=== PATIENT | male | born 1930 | race Caucasian/White ===

== ENCOUNTER 2016-08-23 17:45 | Emergency (ER) | payer OTHER ==
[~2016-08-23 17:45] MED LIST: ASPIRIN CHILDRE81 MG PO; CALCIUM ACETATE PO; COREG3.125 MG PO; DICLOFENAC SODI50 MG PO; FISH OIL306 MG PO; HYDROCODONE BITA PO; LANOXIN EQUIVALENT PO; LOVASTATIN10 M1 PO; PRILOSEC10 MG PO; VIT B 6 PO; VITAMIN D-31000 UNIT PO
--- NOTE | 2016-08-23 21:18 | ED CLINICAL REPORT ---
Clinical Report - Physicians/Mid Levels [facility] [address] [place] [address] 08/23/2016 17:46 [id number] Time Seen: 18:20; initial patient contact, initial documentation, patient care assumed. Arrived- By private vehicle. Historian- patient and son. HISTORY OF PRESENT ILLNESS Location of injuries- face, chest and right shoulder. Chief Complaint: FALL. The injury occurred today. Occurred at a amish. Fell down 2 stairs and landed on a concrete surface; tripped. The patient complains of mild pain. The patient sustained a blow to the head. No neck pain, loss of consciousness or seizure. Not dazed. REVIEW OF SYSTEMS No numbness, chest pain, difficulty breathing, weakness or abdominal pain. No laceration. He has no pain on weight bearing. All systems otherwise negative, except as recorded above. PAST HISTORY See nurses notes. PROBLEMS: Epistaxis. Numerous nosebleeds. Abdominal Pain. Diarrhea. Chest Pain. Coronary Artery Disease. Hypercholesterolemia. Prostate Cancer. Myocardial Infarction. --18:04 Rolando Palacios R.N. ADDITIONAL SURGERIES: Colonoscopy. Coronary Angioplasty. Prostatectomy. --18:04 Rolando Palacios R.N. SOCIAL HISTORY Former smoker. No alcohol use or drug use. No recent travel. Is a local resident. FAMILY HISTORY No significant family medical history. ADDITIONAL NOTES The nursing notes have been reviewed with agreement regarding the chief complaint, HPI, ROS, PMH and patient medications and allergies. PHYSICAL EXAM Vital Signs: 08/23/2016 17:59 BP: 127/66. HR: 62. RR: 16. O2 saturation: 98%. Temp: 98 F. Pain level now: 4/10. Have been reviewed as normal and appear to be correct. Appearance: Alert. Oriented X3. No acute distress. Head: Head tender. Swelling of head present. Eyes: Pupils equal, round and reactive to light. EOM intact. Right periorbital area: mild tenderness and swelling and small abrasion and ecchymosis of the lateral aspect and supraorbital area of the periorbital area. No erythema, puncture wound or foreign body. No laceration or deformity. No entrapment of extraocular muscles or gaze palsy. ENT: No dental injury. Pharynx normal. Neck: Painless ROM. Non-tender. CVS: Heart sounds normal. Pulses normal. Respiratory: Breath sounds normal. Chest nontender. Abdomen: No visible injury. Soft and nontender. Back: No tenderness. ROM normal. Skin: Skin intact. Skin warm and dry. Normal skin color. Normal skin turgor. Extremities: Normal inspection. Pelvis stable. Extremities atraumatic. No lower extremity edema. Neuro: Oriented X 3. No motor deficit. No sensory deficit. LABS, X-RAYS, AND EKG X-Rays: X-rays are normal and reveal no acute disease (and reviewed by dr jane). Right shoulder negative. Rib series negative. The X-rays were independently viewed by me. Sternum / Ribs X-rays: (IMPRESSION: 1. Minor left basilar plate-like atelectasis. 2. No evidence of a fracture Electronically Final signed by:Bayron Tracy MD 08/23/2016 9:42:41 PM). The X-rays were interpreted by the radiologist and contemporaneously by me. Rt Shoulder X-ray: (IMPRESSION: 1. Chronic rotator cuff tear 2. 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 Electronically Final signed by:Bayron Tracy MD 08/23/2016 9:44:00 PM). The X-rays were interpreted by the radiologist and contemporaneously by me. PROGRESS AND PROCEDURES Patient and relative counseled in person regarding the patient's stable condition, test results and diagnosis. 2112. Differential Diagnosis: Other possible considerations: fall, fx, head injury, contusions, abrasions, lacs, sprains. Above considerations are based on history, physical exam and X-Ray data. Differential diagnosis was discussed with patient and patient's family. Disposition: Discharged home in good and unchanged condition (21:18). Condition: good and stable. CLINICAL IMPRESSION Muscle strain of the anterior chest wall and right rotator cuff at the shoulder. Fall on same level by tripping. Single contusion with abrasion to the right periorbital area.No hematoma. INSTRUCTIONS Apply ice for 20 minutes four times a day for two days until better. Don't apply ice directly to skin. Protect wound and keep wound area clean. Soak in warm soapy water twice daily. Apply bacitracin twice daily. Warnings: HEAD INJURY PRECAUTIONS: An observer must check on the patient frequently for the next 24 hours to confirm that the patient responds as expected, is not confused, has no new weakness or numbness, and has no other problems. GENERAL WARNINGS: Return or contact your physician immediately if your condition worsens or changes unexpectedly, if not improving as expected, or if other problems arise. SPECIFICALLY, return if you develop incontinence of feces (loss of bowel control) or urine (loss of bladder control). trouble breathing, chestp pain, abdominal pain. Prescription Medications: Naproxen 500 mg tablets: take 1 orally every 12 hours as needed for pain. Dispense twenty (20). No refills. Follow-up: Follow up with your doctor in about five days even if well. Summary of care provided to patient. Understanding of the discharge instructions verbalized by patient. (Electronically signed by Kenyetta Woo A.R.N.P. 08/23/2016 21:44)
--- NOTE | 2016-08-23 21:19 | ED NURSING NOTES ---
Clinical Report - Nurses [facility] [address] [place] [address] 08/23/2016 17:46 [id number] TRI[facility] Triage time 17:59. Acuity: LEVEL 3. Chief Complaint: FALL (Fell down 2 concrete steps today, hit his right ribs and head. Pt states he stumbled and fell. Now c/o right rib and right shoulder pain. abrasions near his right eye.). 18:02 08/23/16. SEPSIS SCREEN: Sepsis Screen. Negative (no infection suspected/documented). JARRETT COMA SCORE: Jarrett Coma Scale: 15- eyes open spontaneously (4); best verbal response- oriented x 4 (5); best motor response- obeys commands (6). --18:13 Rolando Palacios R.N. 17:59 08/23/16. BP: 127/66. HR: 62. RR: 16. O2 saturation: 98% on room air. Temp: 98 F (oral). Pain level now: 10/27. --18:13 Rolando Palacios R.N. Weight: 81.6 kg estimated. Height/Length: 67 inches Estimated. BMI: 28.2. --18:04 Rolando Palacios R.N. Medications Aspirin Oral. Calcium Acetate-Magnesium Carb Oral. Diclofenac Oral. Fish Oil Oral. Lovastatin Oral (Tablet 20 mg) 1 tablet, daily. Omeprazole Oral. Vitamin B-6 Oral. Vitamin D Oral. --18:03 Rolando Palacios R.N. Water pill - started approx 2 weeks ago (Dr Hay). --18:04 Rolando Palacios R.N. Allergies No Known Drug Allergy. --18:03 Rolando Palacios R.N. History Arrived by private vehicle. Historian: family. This occurred today. ( He was initially evaluated by EMS, but declined transport.). No loss of consciousness. Treatment EDUCATIONAL INSTITUTION PRESIDENT: None. Trauma activation: Pre-hospital notification of patient arrival was not received. PAST MEDICAL HX: ( [email or web address]). SOCIAL HX: Former smoker, end date 1976. No alcohol use or drug use. ABUSE ASSESSMENT: No report of abuse. --18:13 Rolando Palacios R.N. PROBLEMS: Epistaxis. Numerous nosebleeds. Abdominal Pain. Diarrhea. Chest Pain. Coronary Artery Disease. Hypercholesterolemia. Prostate Cancer. Myocardial Infarction. --18:04 Rolando Palacios R.N. ADDITIONAL SURGERIES: Colonoscopy. Coronary Angioplasty. Prostatectomy. --18:04 Rolando Palacios R.N. Interventions ID band on patient. To treatment room. --18:13 Rolando Palacios R.N. PHYSICAL ASSESSMENT 18:18 08/23/16. Ambulatory to room. GENERAL / NEURO / PSYCH: Alert. Appears in pain. The patient is disoriented to time. HEENT: Pupils equal, round and reactive to light. Head non-tender. RESPIRATORY: Respirations not labored. Chest nontender. Breath sounds within normal limits. CVS: Pulses within normal limits. Capillary refill less than 2 seconds. GI / : Abdomen soft and nontender. EXTREMITIES: Limited ROM present in the right shoulder. Neuro-vascular status intact to the extremity. SKIN: Skin is warm and dry. ( abrasions over right clavicle, around right eye, posterior right shoulder, bruise at anterior axilla.). --18:18 Rolando Palacios R.N. NURSING PROGRESS NOTES 18:18 08/23/16. Patient gowned. Reassurance given. Two patient identifiers checked. Call light placed in reach. Bed placed in lowest position. Brakes of bed on. Patient ready for evaluation- chart flagged. --18:18 Rolando Palacios R.N. 19:16 08/23/16. Care transferred and report given (Honorio Ramirez, RN). --19:16 Rolando Palacios R.N. 20:15 08/23/16. BP: 122/72. HR: 72 (regular). RR: 16. O2 saturation: 98% on room air. Pain level now: 08/29. --20:19 Honorio Campbell R.N. 21:10. ( Bacitracin ointment applied to abrasions on his forehead). --07:31 Honorio Campbell R.N. DISPOSITION / DISCHARGE 21:15. Condition at departure: improved. No learning barriers present. Discharge instructions provided and reviewed with the patient. Reviewed medication(s) (prescription given to pt). Reviewed wound care instructions. Reviewed referral to family practice for followup. Patient and family verbalized understanding. Written instructions provided in Salvadorean. The patient was discharged by the physician. He was discharged home and accompanied by family. He left the Emergency Department ambulatory and via private vehicle. Family member driving. --07:24 Honorio Campbell R.N. Departure time: 2114Aug 23 2016. --07:25 Honorio Campbell R.N. 21:15 08/23/16. BP: 132/68. HR: 84 (regular and normal rate). RR: 16. O2 saturation: 98% on room air. Temp: 98.6 F (oral). Pain level now: 08/29. --07:27 Honorio Campbell R.N. Locked/Released at 08/24/2016 7:31 by Honorio Campbell R.N.
--- NOTE | 2016-08-23 21:19 | ED NURSING NOTES ---
Clinical Report - Nurses [facility] [address] [place] [address] 08/23/2016 17:46 [id number] TRI[facility] Triage time 17:59. Acuity: LEVEL 3. Chief Complaint: FALL (Fell down 2 concrete steps today, hit his right ribs and head. Pt states he stumbled and fell. Now c/o right rib and right shoulder pain. abrasions near his right eye.). 18:02 08/23/16. SEPSIS SCREEN: Sepsis Screen. Negative (no infection suspected/documented). JARRETT COMA SCORE: Jarrett Coma Scale: 15- eyes open spontaneously (4); best verbal response- oriented x 4 (5); best motor response- obeys commands (6). --18:13 Rolando Palacios R.N. 17:59 08/23/16. BP: 127/66. HR: 62. RR: 16. O2 saturation: 98% on room air. Temp: 98 F (oral). Pain level now: 10/27. --18:13 Rolando Palacios R.N. Weight: 81.6 kg estimated. Height/Length: 67 inches Estimated. BMI: 28.2. --18:04 Rolando Palacios R.N. Medications Aspirin Oral. Calcium Acetate-Magnesium Carb Oral. Diclofenac Oral. Fish Oil Oral. Lovastatin Oral (Tablet 20 mg) 1 tablet, daily. Omeprazole Oral. Vitamin B-6 Oral. Vitamin D Oral. --18:03 Rolando Palacios R.N. Water pill - started approx 2 weeks ago (Dr Hay). --18:04 Rolando Palacios R.N. Allergies No Known Drug Allergy. --18:03 Rolando Palacios R.N. History Arrived by private vehicle. Historian: family. This occurred today. ( He was initially evaluated by EMS, but declined transport.). No loss of consciousness. Treatment JEWELRY MANAGER: None. Trauma activation: Pre-hospital notification of patient arrival was not received. PAST MEDICAL HX: ( [email or web address]). SOCIAL HX: Former smoker, end date 1976. No alcohol use or drug use. ABUSE ASSESSMENT: No report of abuse. --18:13 Rolando Palacios R.N. PROBLEMS: Epistaxis. Numerous nosebleeds. Abdominal Pain. Diarrhea. Chest Pain. Coronary Artery Disease. Hypercholesterolemia. Prostate Cancer. Myocardial Infarction. --18:04 Rolando Palacios R.N. ADDITIONAL SURGERIES: Colonoscopy. Coronary Angioplasty. Prostatectomy. --18:04 Rolando Palacios R.N. Interventions ID band on patient. To treatment room. --18:13 Rolando Palacios R.N. PHYSICAL ASSESSMENT 18:18 08/23/16. Ambulatory to room. GENERAL / NEURO / PSYCH: Alert. Appears in pain. The patient is disoriented to time. HEENT: Pupils equal, round and reactive to light. Head non-tender. RESPIRATORY: Respirations not labored. Chest nontender. Breath sounds within normal limits. CVS: Pulses within normal limits. Capillary refill less than 2 seconds. GI / : Abdomen soft and nontender. EXTREMITIES: Limited ROM present in the right shoulder. Neuro-vascular status intact to the extremity. SKIN: Skin is warm and dry. ( abrasions over right clavicle, around right eye, posterior right shoulder, bruise at anterior axilla.). --18:18 Rolando Palacios R.N. NURSING PROGRESS NOTES 18:18 08/23/16. Patient gowned. Reassurance given. Two patient identifiers checked. Call light placed in reach. Bed placed in lowest position. Brakes of bed on. Patient ready for evaluation- chart flagged. --18:18 Rolando Palacios R.N. 19:16 08/23/16. Care transferred and report given (Honorio Ramirez, RN). --19:16 Rolando Palacios R.N. 20:15 08/23/16. BP: 122/72. HR: 72 (regular). RR: 16. O2 saturation: 98% on room air. Pain level now: 08/29. --20:19 Honorio Campbell R.N. 21:10. ( Bacitracin ointment applied to abrasions on his forehead). --07:31 Honorio Campbell R.N. DISPOSITION / DISCHARGE 21:15. Condition at departure: improved. No learning barriers present. Discharge instructions provided and reviewed with the patient. Reviewed medication(s) (prescription given to pt). Reviewed wound care instructions. Reviewed referral to family practice for followup. Patient and family verbalized understanding. Written instructions provided in Mauritian. The patient was discharged by the physician. He was discharged home and accompanied by family. He left the Emergency Department ambulatory and via private vehicle. Family member driving. --07:24 Honorio Campbell R.N. Departure time: 2114Aug 23 2016. --07:25 Honorio Campbell R.N. 21:15 08/23/16. BP: 132/68. HR: 84 (regular and normal rate). RR: 16. O2 saturation: 98% on room air. Temp: 98.6 F (oral). Pain level now: 08/29. --07:27 Honorio Campbell R.N. Locked/Released at 08/24/2016 7:31 by Honorio Campbell R.N.
--- NOTE | 2016-08-23 21:19 | ED ORDER SUMMARY ---
..... Patient: YAYA RODRÍGUEZ OrderSheet VisitID: [id number] [place] [address] 86y, M Registration Date/Time: 08/23/2016 ORDER SHEET Weight: 81.6 kg (estimated) Allergies: No Known Drug Allergy GENERAL ORDERS: Shoulder 2V or more Right Urgent (18:27 08/23/2016 HBivens A.R.N.P.) (Ack 18:31 TBergley) (19:05 RFay) Ribs Unilat w PA Chest Right Urgent (18:28 08/23/2016 HBivens A.R.N.P.) (Ack 18:31 TBergley) (19:05 RFay) MEDICATION ORDERS: IV FLUIDS: ORDER SHEET NOTES: [Electronically signed by Kenyetta WooR.N.PVerónica (21:44 08/23/2016)] [Electronically signed by Honorio Campbell R.N. (07:31 08/24/2016)] [Electronically locked/signed by Honorio Campbell R.N. (07:08/24/2016)]
--- NOTE | 2016-08-23 21:19 | ED ORDER SUMMARY ---
..... Patient: YAYA RODRÍGUEZ OrderSheet [facility] VisitID: [id number] [place] [address] 86y, M Registration Date/Time: 08/23/2016 ORDER SHEET Weight: 81.6 kg (estimated) Allergies: No Known Drug Allergy GENERAL ORDERS: Shoulder 2V or more Right Urgent (18:27 08/23/2016 HBivens A.R.N.P.) (Ack 18:31 TBergley) (19:05 RFay) Ribs Unilat w PA Chest Right Urgent (18:28 08/23/2016 HBivens A.R.N.P.) (Ack 18:31 TBergley) (19:05 RFay) MEDICATION ORDERS: IV FLUIDS: ORDER SHEET NOTES: [Electronically signed by Kenyetta WooR.N.PVerónica (21:44 08/23/2016)] [Electronically signed by Honorio Campbell R.N. (07:31 08/24/2016)] [Electronically locked/signed by Honorio Campbell R.N. (07:08/24/2016)]
--- NOTE | 2016-08-23 21:42 | DIAGNOSTIC IMAGING REPORT ---
PROCEDURE: XR RIBS UNILAT W/PA CHEST-RT INDICATION: TRAUMA/INJURY TECHNIQUE: Two views of the right ribs with single PA view chest. COMPARISON: None. FINDINGS: RIGHT RIBS: No fracture or suspicious osseous lesion pill CHEST: Minor left basilar plate-like atelectasis Heart size and part vessels are normal. Tortuous aorta. Right shoulder chronic rotator cuff tear . IMPRESSION: 1. Minor left basilar plate-like atelectasis. 2. No evidence of a fracture
--- NOTE | 2016-08-23 21:44 | DIAGNOSTIC IMAGING REPORT ---
PROCEDURE: XR SHOULDER 2 OR MORE VW-RIGHT INDICATION: TRAUMA/INJURY TECHNIQUE: Three views. COMPARISON: None. FINDINGS: Chronic rotator cuff tear. 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 No fracture or dislocation. Soft tissues are unremarkable. IMPRESSION: 1. Chronic rotator cuff tear 2. 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
--- NOTE | 2016-08-24 07:31 | ED DISCHARGE INSTRUCTIONS ---
Patient: YAYA RODRÍGUEZ General Instructions [facility] VisitID: [id number] [place] [address] 86y, M Registration Date/Time: 08/23/2016 Muscle strain of the anterior chest wall and right rotator cuff at the shoulder. Fall on same level by tripping. Single contusion with abrasion to the right periorbital area.No hematoma. INSTRUCTIONS Apply ice for 20 minutes four times a day for two days until better. Don't apply ice directly to skin. Protect wound and keep wound area clean. Soak in warm soapy water twice daily. Apply bacitracin twice daily. Warnings: HEAD INJURY PRECAUTIONS: An observer must check on the patient frequently for the next 24 hours to confirm that the patient responds as expected, is not confused, has no new weakness or numbness, and has no other problems. GENERAL WARNINGS: Return or contact your physician immediately if your condition worsens or changes unexpectedly, if not improving as expected, or if other problems arise. SPECIFICALLY, return if you develop incontinence of feces (loss of bowel control) or urine (loss of bladder control). trouble breathing, chestp pain, abdominal pain. Prescription Medications: Naproxen 500 mg tablets: take 1 orally every 12 hours as needed for pain. Dispense twenty (20). No refills. Follow-up: Follow up with your doctor in about five days even if well. Summary of care provided to patient. Understanding of the discharge instructions verbalized by patient. ADDITIONAL INFORMATION Mechanical Fall You have had a fall today. It appears that the cause is mechanical. That means that you slipped, tripped or lost your balance. If your fall had been due to fainting or a seizure, further tests would be required. Home Care: Rest today and resume your normal activities when you are feeling back to normal. If you were injured during the fall, follow the advice from your doctor regarding care of your injury. You may use acetaminophen (Tylenol) or ibuprofen (Motrin, Advil) to control pain, unless another pain medicine was prescribed. [NOTE: If you have chronic liver or kidney disease or ever had a stomach ulcer or GI bleeding, talk with your doctor before using these medicines.] Fall Prevention: Was there anything that caused your fall that can be fixed, removed, or replaced? Make your home safe by keeping walkways clear of objects you may trip over. Use non-slip pads under rugs. Do not walk in poorly lit areas. Do not stand on chairs or wobbly ladders. Use caution when reaching overhead or looking upward. This position can cause a loss of balance. Be sure your shoes fit properly, have non-slip bottoms and are in good condition. Be cautious when going up and down curbs, and walking on uneven sidewalks. If your balance is poor, consider using a cane or walker. Stay as active as you can. Balance, flexibility, strength, and endurance all come from exercise. They all play a role in preventing falls. Follow Up with your doctor or as advised by our staff. Get Prompt Medical Attention if any of the following occur: Repeated mechanical falls, or unexplained falls Dizziness, fainting or seizure Severe headache Chest pain or shortness of breath Palpitations (very rapid or very slow or irregular heartbeat) Blood in vomit, stools (black or red color) Weakness of an arm or leg or one side of the face Difficulty with speech or vision Muscle Strain,Extremity A MUSCLE STRAIN is a stretching and tearing of muscle fibers. This causes pain, especially with motion of that muscle. There may also be some swelling and bruising. Home Care: 1) Keep the injured area raised to reduce pain and swelling. This is especially important during the first 48 hours. 2) Make an ice pack (ice cubes in a plastic bag, wrapped in a towel) and apply for 20 minutes every 1-2 hours the first day. You should continue with ice packs 3-4 times a day for the second and third days. Unless otherwise instructed, on the fourth day you may begin hot soaks or hot packs (small towel soaked in hot water) 3-4 times a day while you gently exercise the involved area. 3) You may use acetaminophen (Tylenol) or ibuprofen (Motrin, Advil) to control pain, unless another medicine was prescribed. [ NOTE : If you have chronic liver or kidney disease or ever had a stomach ulcer or GI bleeding, talk with your doctor before using these medicines.] 4) For LEG STRAINS: If CRUTCHES have been recommended, do not bear full weight on the injured leg until you can do so without pain. You may return to sports when you are able to hop and run on the injured leg without pain. Follow Up with your doctor or this facility if you are not improving within the next five days. Get Prompt Medical Attention if any of the following occur: -- Fingers or toes become swollen, cold, blue, numb or tingly -- Pain or swelling increases Chest Strain A strain of the chest is due to stretching and tearing of the muscle fibers between the ribs. This may occur as a result of severe coughing, strenuous lifting or twisting injuries of the upper back. This usually causes increased pain with movement or deep breathing. This may take a few days to a few weeks to heal. Home Care: Rest. Avoid heavy lifting or strenuous exertion. Avoid any activity that causes pain. If you have a severe cough, use a cough syrup such as Robitussin DM (containing dextromethorphan) unless another cough medicine was prescribed. You may use acetaminophen (Tylenol) or ibuprofen (Motrin, Advil) to control pain, unless another medicine was prescribed. [ NOTE: If you have chronic liver or kidney disease or ever had a stomach ulcer or GI bleeding, talk with your doctor before using these medicines.] Follow Up with your doctor as directed. Get Prompt Medical Attention if any of the following occur: A change in the type of pain: if it feels different, becomes more severe, lasts longer, or begins to spread into your shoulder, arm, neck, jaw or back Shortness of breath or increased pain with breathing Cough with dark colored sputum (phlegm) or blood Weakness, dizziness, or fainting Fever of 100.4F (38C) or higher, or as directed by your healthcare provider Facial Contusion (No Wake-Up) A facial contusion is a bruise with swelling and sometimes bleeding under the skin. The swelling should start to go down within two days. Although there may be no signs of a serious injury at this time, symptoms may appear later which could be a sign of a more serious problem. Therefore, watch for the warning signs below. Home care The following guidelines will help you care for your injury at home: If you have swelling of the face, apply an ice pack (ice cubes in a plastic bag, wrapped in a towel) for 20 minutes every 12 hours until the swelling starts to go down. If you have scrapes or cuts on your face, clean them daily with soap and water. Apply an antibiotic ointment or cream for the first few days to prevent infection. You may use acetaminophen or ibuprofen to control pain, unless another pain medicine was prescribed.If you have chronic liver or kidney disease or ever had a stomach ulcer or GI bleeding, talk with your doctor before using these medicines. Do not use ibuprofen in children under six months of age. For the next 24 hours: Do not take alcohol, sedatives or medicines that make you sleepy. Do not drive or operate machinery. Avoid strenuous activities. No lifting or straining. If you have had any symptoms of aconcussiontoday (nausea, vomiting, dizziness, confusion, headache, memory loss or if you were knocked out), do not return to sports or any activity that could result in another head injury until all symptoms are gone and you have been cleared by your doctor. A second head injury before fully recovering from the first one can lead to serious brain injury. Follow-up care Follow up with your doctor in one week or as directed. Note: Any X-rays or CT scans taken will be reviewed by a radiologist. You will be notified of any new findings that may affect your care. When to seek medical care Get prompt medical attention if any of the following occur: Repeated vomiting Severe or worsening headache or dizziness Unusual drowsiness, or unable to awaken as usual Confusion or change in behavior or speech, memory loss, blurred vision Convulsion (seizure) Increasing scalp or face swelling Redness, warmth or pus from the swollen area Fluid drainage or bleeding from the nose or ears Fever of 100.4F (38C) or higher, or as directed by your health care provider Increasing jaw pain with chewing or increasing pain in the sinuses Nose looks crooked or cannot breathe through your nose after swelling goes down Eye Contusion You have a CONTUSION of your eye. This can cause swelling and bruising of the lids (black eye) and may also cause bleeding in the white part of the eye. The bruising and lid swelling may increase over the first 12 hours. The lid swelling should start to go down after 1-2 days. The lid bruising may take 1-2 weeks to disappear. Home Care: Make an ice pack (ice cubes in a plastic bag, wrapped in a towel) and apply for 20 minutes every 1-2 hours the first day. Continue this 3-4 times a day until the swelling starts to go down. You may use acetaminophen (Tylenol) or ibuprofen (Motrin, Advil) to control pain, unless another pain medicine was prescribed. [NOTE:If you have chronic liver or kidney disease or ever had a stomach ulcer or GI bleeding, talk with your doctor before using these medicines.] Follow Up with your doctor or this facility if you are not improving within the next THREE days. [NOTE: If X-rays were taken, they will be reviewed by a radiologist. You will be notified of any new findings that may affect your care.] Get Prompt Medical Attention if any of the following occur: Increasing eye pain Unable to open eyelid after 2 days, due to swelling Any sudden changes in your vision Light flashes Floaters (small dots or strings that seem to be moving across your field of vision) Eye pain, redness, or discharge from your eyelid Blurriness that lasts more than 24 hours Dark spots in your field of vision Halos around lights Dimness of vision Partial or complete loss of vision Head Injury, No Wake-Up (Adult) You have had a head injury. It does not appear serious at this time. Symptoms of a more serious problem (concussion, bruising, or bleeding in the brain) may appear later. Therefore, watch for the WARNING SIGNS listed below. Home Care: Your healthcare provider will tell you whether its okay to drive. If so, you can drive yourself home. For the next day or so, be careful when driving or using heavy machinery until you are sure you have no delayed symptoms. During the next 24 hours someone must stay with you to check for the signs below. It is not necessary to stay awake or be awakened during the night. If you have swelling of the face or scalp, apply an ice pack (ice cubes in a plastic bag, wrapped in a towel) for 20 minutes. Do this every 1-2 hours until the swelling starts to go down. Do not use aspirin or ibuprofen (Motrin, Advil) after a head injury.You may use acetaminophen (Tylenol)to control pain, unless another pain medicine was prescribed. [NOTE: If you have chronic liver or kidney disease or ever had a stomach ulcer or GI bleeding, talk with your doctor before using these medicines.] For the next 24 hours: Do not take alcohol, sedatives or medicines that make you sleepy. Avoid strenuous activities. No lifting or straining. If you have had any symptoms of a concussion today (nausea, vomiting, dizziness, confusion, headache, memory loss or if you were knocked out), do not return to sports or any activity that could result in another head injury until all symptoms are gone and you have been cleared by your doctor. A second head injury before fully recovering from the first one can lead to serious brain injury. Follow Up with your doctor if symptoms are not improving after 24 hours, or as directed. [NOTE: A radiologist will review any X-rays or CT scans that were taken. We will notify you of any new findings that may affect your care.] Get Prompt Medical Attention if any of the followingWARNING SIGNS occur: Repeated vomiting Severe or worsening headache or dizziness Unusual drowsiness, or unable to awaken as usual Confusion or change in behavior or speech, memory loss, blurred vision Convulsion (seizure) Increasing scalp or face swelling Redness, warmth or pus from the swollen area Fluid drainage or bleeding from the nose or ears Naproxen Sodium Oral tablet What is this medicine? NAPROXEN (na PROX en) is a non-steroidal anti-inflammatory drug (NSAID). It is used to reduce swelling and to treat pain. This medicine may be used for dental pain, headache, or painful monthly periods. It is also used for painful joint and muscular problems such as arthritis, tendinitis, bursitis, and gout. How should I use this medicine? Take this medicine by mouth with a glass of water. Follow the directions on the prescription label. Take it with food if your stomach gets upset. Try to not lie down for at least 10 minutes after you take it. Take your medicine at regular intervals. Do not take your medicine more often than directed. Long-term, continuous use may increase the risk of heart attack or stroke. A special MedGuide will be given to you by the pharmacist with each prescription and refill. Be sure to read this information carefully each time. Talk to your school childcare attendant regarding the use of this medicine in children. Special care may be needed. What side effects may I notice from receiving this medicine? Side effects that you should report to your doctor or health director of health care marketing as soon as possible: black or bloody stools, blood in the urine or vomit blurred vision chest pain difficulty breathing or wheezing nausea or vomiting severe stomach pain skin rash, skin redness, blistering or peeling skin, hives, or itching slurred speech or weakness on one side of the body swelling of eyelids, throat, lips unexplained weight gain or swelling unusually weak or tired yellowing of eyes or skin Side effects that usually do not require medical attention (report to your doctor or health director of health care marketing if they continue or are bothersome): constipation headache heartburn What may interact with this medicine? alcohol aspirin cidofovir diuretics lithium methotrexate other drugs for inflammation like ketorolac or prednisone pemetrexed probenecid warfarin What if I miss a dose? If you miss a dose, take it as soon as you can. If it is almost time for your next dose, take only that dose. Do not take double or extra doses. Where should I keep my medicine? Keep out of the reach of children. Store at room temperature between 15 and 30 degrees C (59 and 86 degrees F). Keep container tightly closed. Throw away any unused medicine after the expiration date. What should I tell my health care provider before I take this medicine? They need to know if you have any of these conditions: asthma cigarette smoker drink more than 3 alcohol containing drinks a day heart disease or circulation problems such as heart failure or leg edema (fluid retention) high blood pressure kidney disease liver disease stomach bleeding or ulcers an unusual or allergic reaction to naproxen, aspirin, other NSAIDs, other medicines, foods, dyes, or preservatives or trying to get breast-feeding What should I watch for while using this medicine? Tell your doctor or health director of health care marketing if your pain does not get better. Talk to your doctor before taking another medicine for pain. Do not treat yourself. This medicine does not prevent heart attack or stroke. In fact, this medicine may increase the chance of a heart attack or stroke. The chance may increase with longer use of this medicine and in people who have heart disease. If you take aspirin to prevent heart attack or stroke, talk with your doctor or health director of health care marketing. Do not take other medicines that contain aspirin, ibuprofen, or naproxen with this medicine. Side effects such as stomach upset, nausea, or ulcers may be more likely to occur. Many medicines available without a prescription should not be taken with this medicine. This medicine can cause ulcers and bleeding in the stomach and intestines at any time during treatment. Do not smoke cigarettes or drink alcohol. These increase irritation to your stomach and can make it more susceptible to damage from this medicine. Ulcers and bleeding can happen without warning symptoms and can cause . You may get drowsy or dizzy. Do not drive, use machinery, or do anything that needs mental alertness until you know how this medicine affects you. Do not stand or sit up quickly, especially if you are an older patient. This reduces the risk of dizzy or fainting spells. This medicine can cause you to bleed more easily. Try to avoid damage to your teeth and gums when you brush or floss your teeth. You have been given the following additional information: Fall, Mechanical Muscle Strain, Extremity Chest Wall Strain Facial Contusion, No Wakeup Contusion, Eye HEAD INJURY, No Wake-Up (Adult) Naproxen Sodium Oral tablet (Electronically signed by Kenyetta Woo A.R.N.PVerónica 08/23/2016 21:44)
--- NOTE | 2016-08-24 07:31 | ED MAR SUMMARY ---
..... Medication Administration Record [facility] [address] [place], [place] [id number] Patient: YAYA RODRÍGUEZ Visit ID: [id number] 86y, M Weight: 81.6 kg Height/Length: 67 in BMI: 28.2 ALLERGIES: No Known Drug Allergy
--- NOTE | 2016-08-24 07:31 | ED MAR SUMMARY ---
..... Medication Administration Record [facility] [address] [place], [place] [id number] Patient: YAYA RODRÍGUEZ Visit ID: [id number] 86y, M Weight: 81.6 kg Height/Length: 67 in BMI: 28.2 ALLERGIES: No Known Drug Allergy
--- NOTE | 2016-08-24 07:31 | ED MED RECONCILIATION SUMMARY ---
Patient: YAYA RODRÍGUEZ Medication Reconciliation Report [facility] VisitID: [id number] [place] [address] 86y, M Registration Date/Time: 08/23/2016 Weight: 81.6 kg Height/Length: 67 in. BMI: 28.2 ALLERGIES: No Known Drug Allergy The patient's Home Medications are listed below: THE FOLLOWING MEDICATIONS NEED TO BE RECONCILED: Aspirin Oral Calcium Acetate-Magnesium Carb Oral Diclofenac Oral Fish Oil Oral Lovastatin Oral (20 mg) 1 tablet, daily Omeprazole Oral Vitamin B-6 Oral Vitamin D Oral Water pill - started approx 2 weeks ago (Dr Hay) The source(s) of the original Home Medication information: Not obtained. The following Medications were given to the patient in the Emergency Department: None. The following Medications were prescribed to the patient: Naproxen 500 mg tablets: take 1 orally every 12 hours as needed for pain. Dispense twenty (20). No refills. -- Kenyetta Woo A.R.N.P.
--- NOTE | 2016-08-24 07:31 | ED MED RECONCILIATION SUMMARY ---
Patient: YAYA RODRÍGUEZ Medication Reconciliation Report [facility] VisitID: [id number] [place] [address] 86y, M Registration Date/Time: 08/23/2016 Weight: 81.6 kg Height/Length: 67 in. BMI: 28.2 ALLERGIES: No Known Drug Allergy The patient's Home Medications are listed below: THE FOLLOWING MEDICATIONS NEED TO BE RECONCILED: Aspirin Oral Calcium Acetate-Magnesium Carb Oral Diclofenac Oral Fish Oil Oral Lovastatin Oral (20 mg) 1 tablet, daily Omeprazole Oral Vitamin B-6 Oral Vitamin D Oral Water pill - started approx 2 weeks ago (Dr Hay) The source(s) of the original Home Medication information: Not obtained. The following Medications were given to the patient in the Emergency Department: None. The following Medications were prescribed to the patient: Naproxen 500 mg tablets: take 1 orally every 12 hours as needed for pain. Dispense twenty (20). No refills. -- Kenyetta Woo A.R.N.P.
== END 2016-08-23 21:15 | disposition home or self-care (01) ==
LOC: ED SRH 17:45
DX: S29.011A Strain of muscle and tendon of front wall of thorax, initial encounter (principal); S46.011A Strain of muscle(s) and tendon(s) of the rotator cuff of right shoulder, initial encounter; S00.83XA Contusion of other part of head, initial encounter; W10.9XXA Fall (on) (from) unspecified stairs and steps, initial encounter; Y93.89 Activity, other specified; Y92.22 Religious institution as the place of occurrence of the external cause; Y99.9 Unspecified external cause status; Z79.891 Long term (current) use of opiate analgesic; Z79.82 Long term (current) use of aspirin; Z79.899 Other long term (current) drug therapy